=== PATIENT | female | born 2000 | race Caucasian/White ===

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

== ENCOUNTER 2020-09-26 17:15 | Emergency (ER) | payer OTHER ==
[2020-09-26 18:24] LABS: HEMOGLOBIN 14.6 gm/dl (12.3-15.3); RED BLOOD COUNT 4.79 M/UL (4.00-5.10); WHITE BLOOD COUNT 3.6 K/UL (4.5-11.0)
[2020-09-26 18:50] LABS: BUN/CREATININE RATIO 7 (0-10)
[2020-09-26] MEDS ORDERED: LOMOTIL 2.5-0.1 EACH PO (19:38)
[2020-09-26] MEDS ORDERED: ZOFRAN ODT 4 MG4 MG SL (19:38)
== END 2020-09-26 19:53 | disposition home or self-care (01) ==
LOC: ER1 17:15
PROVIDERS: Nurse Practitioner
DX: U07.1 COVID-19 (principal)
CPT/HCPCS: 80053; 81001; 83605; 83690; 84703; 85025; 99284; J2405; J7030

== ENCOUNTER → 2020-11-22 | Day surgery (SDC) | payer OTHER ==
[~2020-11-22] MED LIST: HYDROCODON-ACE1 EAC4 PO; LOMOTIL 2.5-0.1 EACH PO; NITROFURANTOIN100 MG PO; ZOFRAN ODT 4 MG4 MG GT; ZOFRAN ODT 4 MG4 MG SL
== END | disposition home or self-care (01) ==
LOC: OR 05:25
DX: K80.64 Calculus of gallbladder and bile duct with chronic cholecystitis without obstruction (principal); K52.9 Noninfective gastroenteritis and colitis, unspecified; Z79.899 Other long term (current) drug therapy
CPT/HCPCS: 84703; C1729; J0690; J1100; J1170; J1885; J2001; J2250; J2405; J2704; J2710; J3010; J7030; J7120